=== PATIENT | male | born 1955 | race Caucasian/White ===

== ENCOUNTER 2019-05-18 07:39 | Day surgery (SDC) | payer OTHER ==
[~2019-05-18] VITALS: Ht 188 cm; Wt 82.6 kg
[~2019-05-18 07:39] MED LIST: ECOT81TA5 PO; NS 1,000 ML IV ONE; SIMV20TA22 PO
[2019-05-18] MEDS ORDERED: LIDOCAINE 2% INJ 100 MG/5 ML SDV (FOR ANES.) As Ordered ONE (08:52)
[2019-05-18] MEDS ORDERED: propofoL 200 MG/20 ML VIAL As Ordered ONE (08:52)
--- NOTE | 2019-05-18 09:11 | ROOR ---
Patient Name: Pieter Cadena Procedure Date: 05/18/2019 8:42 AM Date of : 1955 Age: 64 Room: [facility] [place] Gender: Male Note Status: Finalized Procedure: Colonoscopy Indications: High risk colon cancer surveillance: Personal history of colonic polyps, Family history of colon cancer in a first-degree relative Providers: Naresh Navas Jr, MD Referring MD: 1. No Referring Physician 1. No Referring Physician, Admin. Requesting Provider: Medicines: Propofol per Anesthesia Complications: No immediate complications. Procedure: Pre-Anesthesia Assessment: - Prior to the procedure, a History and Physical was performed, and patient medications and allergies were reviewed. The patient is competent. The risks and benefits of the procedure and the sedation options and risks were discussed with the patient. All questions were answered and informed consent was obtained. Patient identification and proposed procedure were verified by the physician and the nurse in the pre-procedure area and in the procedure room. Mental Status Examination: alert and oriented. Airway Examination: normal oropharyngeal airway and neck mobility. Respiratory Examination: clear to auscultation. CV Examination: normal. ASA Grade Assessment: II - A patient with mild systemic disease. After reviewing the risks and benefits, the patient was deemed in satisfactory condition to undergo the procedure. The anesthesia plan was to use moderate sedation / analgesia (conscious sedation). Immediately prior to administration of medications, the patient was re-assessed for adequacy to receive sedatives. The heart rate, respiratory rate, oxygen saturations, blood pressure, adequacy of pulmonary ventilation, and response to care were monitored throughout the procedure. The physical status of the patient was re-assessed after the procedure. The Colonoscope was introduced through the anus and advanced to the cecum, identified by appendiceal orifice and ileocecal valve. The colonoscopy was performed without difficulty. The patient tolerated the procedure well. The quality of the bowel preparation was adequate. Findings: The descending colon, transverse colon, ascending colon, cecum, appendiceal orifice and ileocecal valve appeared normal. Two polyps were found in the rectum and sigmoid colon. The polyps were diminutive in size. These polyps were removed with a cold snare. Resection and retrieval were complete. Impression: - The descending colon, transverse colon, ascending colon, cecum, appendiceal orifice and ileocecal valve are normal. - Two diminutive polyps in the rectum and in the sigmoid colon, removed with a cold snare. Resected and retrieved. Recommendation: - Repeat colonoscopy in 5 years for surveillance. Naresh Navas MD Naresh Navas Jr, MD 05/18/2019 9:11:19 AM Electronically signed by Naresh Navas Jr, MD Number of Addenda: 0 Note Initiated On: 05/18/2019 8:42 AM Estimated Blood Loss: Estimated blood loss: none.
[2019-05-18 09:30] VITALS: BP 116/79
== END 2019-05-18 09:39 | disposition home or self-care (01) ==
LOC: M OPP 07:39
PROVIDERS: ATTEND Surgery
DX: Z86.010 Personal history of colon polyps (principal); Z80.0 Family history of malignant neoplasm of digestive organs; K62.1 Rectal polyp; D12.5 Benign neoplasm of sigmoid colon; Z79.82 Long term (current) use of aspirin; Z79.899 Other long term (current) drug therapy

== ENCOUNTER → 2020-02-22 | Outpatient (REF) | payer OTHER ==
[~2020-02-22] MED LIST changes: -NS 1,000 ML IV ONE
[2020-02-24 01:07] LABS: ANTINUCLEAR ANTIBODIES DIRECT Negative (Negative); CYCLIC CITRULLINATED PEPTIDE 5 units (0-19)
== END ==
LOC: M LAB REF 11:34
PROVIDERS: ATTEND Internal Medicine
DX: M19.049 Primary osteoarthritis, unspecified hand (principal)

== ENCOUNTER → 2021-08-29 | Outpatient (CLI) | payer MEDICARE, OTHER | LOC: M RAD 09:19 | PROVIDERS: ATTEND Internal Medicine | DX: M79.671 Pain in right foot (principal); M19.071 Primary osteoarthritis, right ankle and foot ==

== ENCOUNTER → 2024-04-05 | Outpatient (CLI) | payer MEDICARE | LOC: M RAD 11:23 | PROVIDERS: ATTEND Internal Medicine | DX: R09.89 Other specified symptoms and signs involving the circulatory and respiratory systems (principal) ==

== ENCOUNTER → 2024-04-28 | Outpatient (CLI) | payer MEDICARE | LOC: M PLAIMG 15:33 | PROVIDERS: ATTEND Internal Medicine | DX: G45.8 Other transient cerebral ischemic attacks and related syndromes (principal) ==